=== PATIENT | male | born 1935 | race Two or more races ===

== ENCOUNTER 2018-02-20 10:40 | Inpatient (IN) | payer MEDICARE, OTHER ==
[2018-02-20] MEDS: SOD CHLORIDE 0.9% 1,000 ML IV ×2 (11:24)
[2018-02-20 11:36] LABS: ADD MAN DIFF? NO
[2018-02-20 11:38] LABS: BASOPHIL # 0.1 10^3/ul (0.0-0.1); BASOPHILS % 0.5 % (0.0-2.0); EOSINOPHILS % 0.4 % (0.0-7.0); HEMATOCRIT 43.6 % (42.0-52.0); HEMOGLOBIN 14.4 g/dl (14.0-18.0); LYMPHOCYTES % 10.3 % (15.0-51.0); MEAN CORPUSCULAR HEMOGLOBIN 31.2 pg (29.0-33.0); MEAN CORPUSCULAR VOLUME 94.4 fl (82.0-101.0); MEAN PLATELET VOLUME 9.8 fl (7.4-10.4); MONOCYTE # 1.1 10^3/ul (0.3-0.9); MONOCYTES % 11.4 % (0.0-11.0); NEUTROPHIL # 7.3 10^3/ul (1.6-7.5); NEUTROPHILS % 76.9 % (39.0-77.0); PLATELET COUNT 250 10^3/UL (140-415); RED BLOOD COUNT 4.62 10^6/ul (4.70-6.10); RED CELL DISTRIBUTION WIDTH 12.6 % (11.5-14.5)
[2018-02-20 11:38] LABS: WHITE BLOOD COUNT 9.5 10^3/ul (4.8-10.8)
[2018-02-20 11:45] LABS: ADD UMIC YES; UR ASCORBIC ACID NEGATIVE (NEGATIVE); UR BILIRUBIN (Dip) NEGATIVE (NEGATIVE); UR BLOOD (Dip) NEGATIVE (NEGATIVE); UR CLARITY CLEAR (CLEAR); UR COLOR YELLOW (YELLOW); UR GLUCOSE (Dip) NEGATIVE (NEGATIVE); UR KETONES (Dip) NEGATIVE (NEGATIVE); UR LEUKOCYTE ESTERASE (Dip) NEGATIVE Leu/ul (NEGATIVE); UR NITRITE (Dip) NEGATIVE (NEGATIVE); UR RBC 1 /HPF (0-5); UR SPECIFIC GRAVITY (Dip) 1.017 (1.003-1.030); UR TOTAL PROTEIN (Dip) 1+ mg/dl (NEGATIVE); UR UROBILINOGEN (Dip) NEGATIVE (NEGATIVE); UR WBC 0 /HPF (0-5)
[2018-02-20 12:16] LABS: ALANINE AMINOTRANSFERASE 22 IU/L (13-69); ALBUMIN/GLOBULIN RATIO 1.08; ALKALINE PHOSPHATASE 52 IU/L (42-121); ANION GAP 17 (8-16); ASPARTATE AMINO TRANSFERASE 21 IU/L (15-46); BILIRUBIN,INDIRECT 0.4 mg/dl (0-1.1); BILIRUBIN,TOTAL 0.4 mg/dl (0.2-1.3); BLOOD UREA NITROGEN 16 mg/dl (7-20); CALCIUM 9.5 mg/dl (8.4-10.2); CARBON DIOXIDE 26 mmol/L (21-31); CHLORIDE 107 mmol/L (97-110); CREATININE 1.43 mg/dl (0.61-1.24); GLUCOSE 102 mg/dl (70-220); POTASSIUM 4.2 mmol/L (3.5-5.1); SODIUM 146 mmol/L (135-144); TOTAL PROTEIN 7.7 g/dl (6.1-8.1)
[2018-02-20 12:26] LABS: B-TYPE NATRIURETIC PEPTIDE 396 PG/ML (0-450)
[2018-02-20 12:37] LABS: TROPONIN-I < 0.012 ng/ml (0.00-0.12)
[2018-02-20] MEDS: CEFTRIAXONE 1 GM/50 ML (PMX) 50 ML IVPB (13:55)
[2018-02-20] MEDS ORDERED: ACETAMINOPHEN 325 MG TAB PO (14:00)
[2018-02-20] MEDS ORDERED: ONDANSETRON 4 MG INJ IV ×2 (14:00→15:30)
[2018-02-20] MEDS: AZITHROMYCIN 250 MG TAB PO (15:18)
[2018-02-20] MEDS: ACETAMINOPHEN 325 MG TAB PO (15:18)
[2018-02-20] MEDS ORDERED: ALBUTEROL 0.083% (NEB) 2.5 MG/3 ML AMP HHN (16:00)
[2018-02-20] MEDS: DEXTROSE 5%-0.45% NACL 1,000 ML IV ×2 (17:00→20:37)
[2018-02-20] MEDS: OFLOXACIN 0.3% 5 ML OPH LEFT EYE (21:00)
[2018-02-20] MEDS: MEMANTINE 10 MG TAB PO (21:33)
[2018-02-20] MEDS: ATORVASTATIN 20 MG TAB PO (21:33)
[2018-02-20] MEDS: TAMSULOSIN (SR) 0.4 MG CAP PO (21:33)
[2018-02-20] MEDS: DICLOFENAC 0.1% 2.5 ML OPH LEFT EYE (21:33)
[2018-02-20] MEDS: PREDNISOLONE ACET 1% 5 ML OPH LEFT EYE (21:34)
[2018-02-21] MEDS: PANTOPRAZOLE (EC) 40 MG TAB PO (05:32)
[2018-02-21 06:01] LABS: ADD MAN DIFF? NO
[2018-02-21 06:10] LABS: BASOPHIL # 0.1 10^3/ul (0.0-0.1); BASOPHILS % 0.7 % (0.0-2.0); EOSINOPHILS # 0.3 10^3/ul (0.0-0.5); HEMATOCRIT 39.1 % (42.0-52.0); HEMOGLOBIN 12.8 g/dl (14.0-18.0); LYMPHOCYTES # 1.4 10^3/ul (0.8-2.9); LYMPHOCYTES % 15.5 % (15.0-51.0); MEAN CORPUSCULAR HEMOGLOBIN 30.5 pg (29.0-33.0); MEAN CORPUSCULAR HGB CONC 32.7 g/dl (32.0-37.0); MEAN CORPUSCULAR VOLUME 93.1 fl (82.0-101.0); MEAN PLATELET VOLUME 10.1 fl (7.4-10.4); MONOCYTE # 1.1 10^3/ul (0.3-0.9); NEUTROPHILS % 68.5 % (39.0-77.0); PLATELET COUNT 230 10^3/UL (140-415); RED CELL DISTRIBUTION WIDTH 12.8 % (11.5-14.5)
[2018-02-21 06:10] LABS: WHITE BLOOD COUNT 8.8 10^3/ul (4.8-10.8)
[2018-02-21 06:44] LABS: ANION GAP 16 (8-16); BLOOD UREA NITROGEN 15 mg/dl (7-20); CALCIUM 8.7 mg/dl (8.4-10.2); CARBON DIOXIDE 22 mmol/L (21-31); CHLORIDE 109 mmol/L (97-110); CREATININE 1.15 mg/dl (0.61-1.24); GLUCOSE 102 mg/dl (70-220); POTASSIUM 3.9 mmol/L (3.5-5.1); SODIUM 143 mmol/L (135-144)
[2018-02-21] MEDS: DICLOFENAC 0.1% 2.5 ML OPH LEFT EYE ×4 (08:58→20:19)
[2018-02-21] MEDS: PREDNISOLONE ACET 1% 5 ML OPH LEFT EYE ×4 (08:59→20:18)
[2018-02-21] MEDS: ASPIRIN (EC) 81 MG TAB PO (09:00)
[2018-02-21] MEDS: LOSARTAN 50 MG TAB PO (09:00)
[2018-02-21] MEDS: MEMANTINE 10 MG TAB PO ×2 (09:00→20:18)
[2018-02-21] MEDS: FINASTERIDE 5 MG TAB PO (09:00)
[2018-02-21] MEDS: NIFEdipine (XL) 30 MG TAB PO (09:01)
[2018-02-21] MEDS ORDERED: CIPROFLOXACIN 0.3% 2.5 ML OPH LEFT EYE (11:31)
[2018-02-21] MEDS: CIPROFLOXACIN 0.3% 2.5 ML OPH LEFT EYE ×3 (12:52→20:19)
[2018-02-21] MEDS: DEXTROSE 5%-0.45% NACL 1,000 ML IV (12:53)
[2018-02-21] MEDS ORDERED: CEFTRIAXONE 1 GM INJ IM (14:00)
[2018-02-21] MEDS: LEVOFLOXACIN 500MG/D5W (PMX) 100 ML IVPB (16:56)
[2018-02-21] MEDS: GUAIFENESIN/DM 5ML CUP PO ×2 (17:09→21:41)
[2018-02-21] MEDS: LEVALBUTEROL (NEB) 0.63 MG/3 ML AMP HHN (19:48)
[2018-02-21] MEDS: TAMSULOSIN (SR) 0.4 MG CAP PO (20:18)
[2018-02-21] MEDS: ATORVASTATIN 20 MG TAB PO (20:18)
[2018-02-21] MEDS: METHYLPREDNISOLONE 125 MG INJ IV (20:19)
[2018-02-22] MEDS: LEVALBUTEROL (NEB) 0.63 MG/3 ML AMP HHN ×4 (01:12→20:01)
[2018-02-22] MEDS: DEXTROSE 5%-0.45% NACL 1,000 ML IV ×2 (02:13→06:23)
[2018-02-22] MEDS: PANTOPRAZOLE (EC) 40 MG TAB PO (05:11)
[2018-02-22 06:05] LABS: ADD MAN DIFF? NO
[2018-02-22 06:10] LABS: WHITE BLOOD COUNT 4.9 10^3/ul (4.8-10.8)
[2018-02-22 06:10] LABS: ABNORMAL IP MESSAGE 1; BASOPHILS % 0.2 % (0.0-2.0); HEMATOCRIT 39.5 % (42.0-52.0); HEMOGLOBIN 13.2 g/dl (14.0-18.0); LYMPHOCYTES # 0.4 10^3/ul (0.8-2.9); LYMPHOCYTES % 7.1 % (15.0-51.0); MEAN CORPUSCULAR HEMOGLOBIN 30.8 pg (29.0-33.0); MEAN CORPUSCULAR HGB CONC 33.4 g/dl (32.0-37.0); MEAN CORPUSCULAR VOLUME 92.3 fl (82.0-101.0); MEAN PLATELET VOLUME 9.9 fl (7.4-10.4); MONOCYTE # 0.1 10^3/ul (0.3-0.9); MONOCYTES % 1.4 % (0.0-11.0); NEUTROPHIL # 4.5 10^3/ul (1.6-7.5); NEUTROPHILS % 90.7 % (39.0-77.0); PLATELET COUNT 215 10^3/UL (140-415); POSITIVE DIFF @See below; RED BLOOD COUNT 4.28 10^6/ul (4.70-6.10); RED CELL DISTRIBUTION WIDTH 12.3 % (11.5-14.5)
[2018-02-22 06:29] LABS: ANION GAP 17 (8-16); BLOOD UREA NITROGEN 18 mg/dl (7-20); CALCIUM 8.7 mg/dl (8.4-10.2); CARBON DIOXIDE 22 mmol/L (21-31); CHLORIDE 107 mmol/L (97-110); CREATININE 1.34 mg/dl (0.61-1.24); GLUCOSE 206 mg/dl (70-220); SODIUM 142 mmol/L (135-144)
[2018-02-22] MEDS: PREDNISOLONE ACET 1% 5 ML OPH LEFT EYE ×4 (08:15→22:24)
[2018-02-22] MEDS: DICLOFENAC 0.1% 2.5 ML OPH LEFT EYE ×4 (08:16→22:15)
[2018-02-22] MEDS: METHYLPREDNISOLONE 125 MG INJ IV ×2 (08:16→21:04)
[2018-02-22] MEDS: CIPROFLOXACIN 0.3% 2.5 ML OPH LEFT EYE ×4 (08:17→22:03)
[2018-02-22] MEDS: MEMANTINE 10 MG TAB PO ×2 (08:17→21:04)
[2018-02-22] MEDS: NIFEdipine (XL) 30 MG TAB PO (08:18)
[2018-02-22] MEDS: ASPIRIN (EC) 81 MG TAB PO (08:18)
[2018-02-22] MEDS: FINASTERIDE 5 MG TAB PO (08:18)
[2018-02-22] MEDS: LOSARTAN 50 MG TAB PO (08:18)
[2018-02-22] MEDS: SOD CHLORIDE 0.9% 1,000 ML IV ×2 (10:23→23:20)
[2018-02-22] MEDS: LEVOFLOXACIN 500MG/D5W (PMX) 100 ML IVPB (16:10)
[2018-02-22] MEDS: GUAIFENESIN/DM 5ML CUP PO (16:16)
[2018-02-22] MEDS: ATORVASTATIN 20 MG TAB PO (21:03)
[2018-02-22] MEDS: TAMSULOSIN (SR) 0.4 MG CAP PO (21:03)
[2018-02-23] MEDS: LEVALBUTEROL (NEB) 0.63 MG/3 ML AMP HHN ×4 (01:39→20:25)
[2018-02-23] MEDS: SOD CHLORIDE 0.9% 1,000 ML IV (02:13)
[2018-02-23 05:16] LABS: ADD MAN DIFF? NO
[2018-02-23 05:25] LABS: ABNORMAL IP MESSAGE 1; BASOPHILS % 0.1 % (0.0-2.0); HEMATOCRIT 39.8 % (42.0-52.0); HEMOGLOBIN 13.3 g/dl (14.0-18.0); LYMPHOCYTES # 0.5 10^3/ul (0.8-2.9); MEAN CORPUSCULAR HEMOGLOBIN 30.9 pg (29.0-33.0); MEAN CORPUSCULAR HGB CONC 33.4 g/dl (32.0-37.0); MEAN CORPUSCULAR VOLUME 92.3 fl (82.0-101.0); MEAN PLATELET VOLUME 9.9 fl (7.4-10.4); MONOCYTE # 0.4 10^3/ul (0.3-0.9); MONOCYTES % 2.4 % (0.0-11.0); NEUTROPHILS % 93.9 % (39.0-77.0); PLATELET COUNT 254 10^3/UL (140-415); POSITIVE DIFF @See below; RED BLOOD COUNT 4.31 10^6/ul (4.70-6.10); RED CELL DISTRIBUTION WIDTH 12.1 % (11.5-14.5)
[2018-02-23 05:25] LABS: WHITE BLOOD COUNT 18.1 10^3/ul (4.8-10.8)
[2018-02-23] MEDS: PANTOPRAZOLE (EC) 40 MG TAB PO (05:59)
[2018-02-23 06:42] LABS: ANION GAP 17 (8-16); BLOOD UREA NITROGEN 25 mg/dl (7-20); CALCIUM 9.1 mg/dl (8.4-10.2); CARBON DIOXIDE 20 mmol/L (21-31); CHLORIDE 113 mmol/L (97-110); CREATININE 1.54 mg/dl (0.61-1.24); GLUCOSE 170 mg/dl (70-220); POTASSIUM 4.2 mmol/L (3.5-5.1); SODIUM 146 mmol/L (135-144)
[2018-02-23] MEDS: CIPROFLOXACIN 0.3% 2.5 ML OPH LEFT EYE ×4 (09:13→21:08)
[2018-02-23] MEDS: PREDNISOLONE ACET 1% 5 ML OPH LEFT EYE ×4 (09:13→21:50)
[2018-02-23] MEDS: DICLOFENAC 0.1% 2.5 ML OPH LEFT EYE ×4 (09:13→21:24)
[2018-02-23] MEDS: MEMANTINE 10 MG TAB PO ×2 (09:14→21:07)
[2018-02-23] MEDS: METHYLPREDNISOLONE 125 MG INJ IV ×2 (09:14→21:24)
[2018-02-23] MEDS: ASPIRIN (EC) 81 MG TAB PO (09:15)
[2018-02-23] MEDS: LOSARTAN 50 MG TAB PO (09:15)
[2018-02-23] MEDS: NIFEdipine (XL) 30 MG TAB PO (09:15)
[2018-02-23] MEDS: FINASTERIDE 5 MG TAB PO (09:15)
[2018-02-23] MEDS: GUAIFENESIN/DM 5ML CUP PO (13:03)
[2018-02-23] MEDS: LEVOFLOXACIN 500 MG TAB PO (14:47)
[2018-02-23] MEDS: TAMSULOSIN (SR) 0.4 MG CAP PO (21:07)
[2018-02-23] MEDS: ATORVASTATIN 20 MG TAB PO (21:07)
[2018-02-23] MEDS: ACETAMINOPHEN 325 MG TAB PO (21:53)
[2018-02-24] MEDS: LEVALBUTEROL (NEB) 0.63 MG/3 ML AMP HHN ×4 (01:13→20:06)
[2018-02-24] MEDS: PANTOPRAZOLE (EC) 40 MG TAB PO (05:43)
[2018-02-24] MEDS: LEVOFLOXACIN 250 MG TAB PO (05:43)
[2018-02-24] MEDS ORDERED: LEVOFLOXACIN 500 MG TAB PO (06:00)
[2018-02-24 07:10] LABS: ADD MAN DIFF? NO
[2018-02-24 07:28] LABS: ABNORMAL IP MESSAGE 1; BASOPHILS % 0.1 % (0.0-2.0); HEMATOCRIT 40.9 % (42.0-52.0); HEMOGLOBIN 13.3 g/dl (14.0-18.0); LYMPHOCYTES # 0.6 10^3/ul (0.8-2.9); LYMPHOCYTES % 2.8 % (15.0-51.0); MEAN CORPUSCULAR HEMOGLOBIN 30.6 pg (29.0-33.0); MEAN CORPUSCULAR HGB CONC 32.5 g/dl (32.0-37.0); MEAN CORPUSCULAR VOLUME 94.2 fl (82.0-101.0); MEAN PLATELET VOLUME 10.4 fl (7.4-10.4); MONOCYTE # 0.5 10^3/ul (0.3-0.9); MONOCYTES % 2.2 % (0.0-11.0); NEUTROPHIL # 19.7 10^3/ul (1.6-7.5); PLATELET COUNT 288 10^3/UL (140-415); POSITIVE DIFF @See below; RED BLOOD COUNT 4.34 10^6/ul (4.70-6.10); RED CELL DISTRIBUTION WIDTH 12.6 % (11.5-14.5)
[2018-02-24 07:28] LABS: WHITE BLOOD COUNT 20.9 10^3/ul (4.8-10.8)
[2018-02-24 07:45] LABS: ANION GAP 19 (8-16); BLOOD UREA NITROGEN 27 mg/dl (7-20); CARBON DIOXIDE 19 mmol/L (21-31); CHLORIDE 112 mmol/L (97-110); GLUCOSE 154 mg/dl (70-220); POTASSIUM 4.5 mmol/L (3.5-5.1); SODIUM 145 mmol/L (135-144)
[2018-02-24] MEDS: FINASTERIDE 5 MG TAB PO (09:58)
[2018-02-24] MEDS: ASPIRIN (EC) 81 MG TAB PO (09:59)
[2018-02-24] MEDS: MEMANTINE 10 MG TAB PO ×2 (09:59→20:56)
[2018-02-24] MEDS: LOSARTAN 50 MG TAB PO (09:59)
[2018-02-24] MEDS: NIFEdipine (XL) 30 MG TAB PO (09:59)
[2018-02-24] MEDS: PREDNISOLONE ACET 1% 5 ML OPH LEFT EYE ×4 (10:00→20:55)
[2018-02-24] MEDS: DICLOFENAC 0.1% 2.5 ML OPH LEFT EYE ×4 (10:00→20:55)
[2018-02-24] MEDS: CIPROFLOXACIN 0.3% 2.5 ML OPH LEFT EYE ×4 (10:00→20:54)
[2018-02-24] MEDS: METHYLPREDNISOLONE 125 MG INJ IV ×2 (10:00→20:56)
[2018-02-24] MEDS: TAMSULOSIN (SR) 0.4 MG CAP PO (20:56)
[2018-02-24] MEDS: ATORVASTATIN 20 MG TAB PO (20:57)
[2018-02-25] MEDS: LEVALBUTEROL (NEB) 0.63 MG/3 ML AMP HHN ×4 (01:38→20:04)
[2018-02-25] MEDS: PANTOPRAZOLE (EC) 40 MG TAB PO (05:43)
[2018-02-25] MEDS: LEVOFLOXACIN 250 MG TAB PO (05:43)
[2018-02-25] MEDS: NIFEdipine (XL) 30 MG TAB PO (09:04)
[2018-02-25] MEDS: LOSARTAN 50 MG TAB PO (09:04)
[2018-02-25] MEDS: METHYLPREDNISOLONE 125 MG INJ IV (09:05)
[2018-02-25] MEDS: MEMANTINE 10 MG TAB PO ×2 (09:05→20:13)
[2018-02-25] MEDS: ASPIRIN (EC) 81 MG TAB PO (09:05)
[2018-02-25] MEDS: CIPROFLOXACIN 0.3% 2.5 ML OPH LEFT EYE ×4 (09:05→20:16)
[2018-02-25] MEDS: FINASTERIDE 5 MG TAB PO (09:05)
[2018-02-25] MEDS: PREDNISOLONE ACET 1% 5 ML OPH LEFT EYE ×4 (09:06→20:16)
[2018-02-25] MEDS: DICLOFENAC 0.1% 2.5 ML OPH LEFT EYE ×4 (09:06→20:15)
[2018-02-25] MEDS: CITRIC ACID/SODIUM CITRATE 15 ML CUP PO ×2 (12:11→20:13)
[2018-02-25] MEDS: ATORVASTATIN 20 MG TAB PO (20:13)
[2018-02-25] MEDS: TAMSULOSIN (SR) 0.4 MG CAP PO (20:13)
[2018-02-26] MEDS: LEVALBUTEROL (NEB) 0.63 MG/3 ML AMP HHN ×4 (01:00→19:09)
[2018-02-26 06:11] LABS: ADD MAN DIFF? NO
[2018-02-26 06:24] LABS: ABNORMAL IP MESSAGE 1; BASOPHILS % 0.2 % (0.0-2.0); HEMATOCRIT 39.4 % (42.0-52.0); HEMOGLOBIN 13.4 g/dl (14.0-18.0); MEAN CORPUSCULAR HEMOGLOBIN 30.9 pg (29.0-33.0); MEAN PLATELET VOLUME 10.2 fl (7.4-10.4); MONOCYTE # 1.6 10^3/ul (0.3-0.9); MONOCYTES % 8.5 % (0.0-11.0); NEUTROPHIL # 16.1 10^3/ul (1.6-7.5); NEUTROPHILS % 83.2 % (39.0-77.0); PLATELET COUNT 300 10^3/UL (140-415); POSITIVE DIFF @See below; RED BLOOD COUNT 4.33 10^6/ul (4.70-6.10); RED CELL DISTRIBUTION WIDTH 12.3 % (11.5-14.5)
[2018-02-26 06:24] LABS: WHITE BLOOD COUNT 19.3 10^3/ul (4.8-10.8)
[2018-02-26] MEDS: LEVOFLOXACIN 250 MG TAB PO (06:32)
[2018-02-26] MEDS: PANTOPRAZOLE (EC) 40 MG TAB PO (06:32)
[2018-02-26 06:57] LABS: ANION GAP 16 (8-16); BLOOD UREA NITROGEN 29 mg/dl (7-20); CALCIUM 8.8 mg/dl (8.4-10.2); CARBON DIOXIDE 26 mmol/L (21-31); CHLORIDE 106 mmol/L (97-110); CREATININE 1.26 mg/dl (0.61-1.24); GLUCOSE 130 mg/dl (70-220); POTASSIUM 3.5 mmol/L (3.5-5.1); SODIUM 144 mmol/L (135-144)
[2018-02-26] MEDS: DICLOFENAC 0.1% 2.5 ML OPH LEFT EYE ×3 (08:47→17:49)
[2018-02-26] MEDS: CIPROFLOXACIN 0.3% 2.5 ML OPH LEFT EYE ×3 (08:47→17:49)
[2018-02-26] MEDS: CITRIC ACID/SODIUM CITRATE 15 ML CUP PO (08:47)
[2018-02-26] MEDS: METHYLPREDNISOLONE 40 MG INJ IV (08:47)
[2018-02-26] MEDS: PREDNISOLONE ACET 1% 5 ML OPH LEFT EYE ×3 (08:47→17:49)
[2018-02-26] MEDS: LOSARTAN 50 MG TAB PO (08:48)
[2018-02-26] MEDS: MEMANTINE 10 MG TAB PO (08:48)
[2018-02-26] MEDS: ASPIRIN (EC) 81 MG TAB PO (08:48)
[2018-02-26] MEDS: NIFEdipine (XL) 30 MG TAB PO (08:48)
[2018-02-26] MEDS: FINASTERIDE 5 MG TAB PO (08:48)
== END 2018-02-26 19:10 | disposition home or self-care (01) | DRG 682 ==
LOC: MS2 19:05 → E/R 10:40 → MS2 13:58
DX: N17.9 Acute kidney failure, unspecified (principal); J18.9 Pneumonia, unspecified organism; J20.9 Acute bronchitis, unspecified; E86.0 Dehydration; I10 Essential (primary) hypertension; E78.5 Hyperlipidemia, unspecified; Z90.49 Acquired absence of other specified parts of digestive tract; R62.7 Adult failure to thrive; N40.0 Benign prostatic hyperplasia without lower urinary tract symptoms; Z87.442 Personal history of urinary calculi; F03.90 Unspecified dementia, unspecified severity, without behavioral disturbance, psychotic disturbance, mood disturbance, and anxiety; K21.9 Gastro-esophageal reflux disease without esophagitis
CPT/HCPCS: 36415; 71045; 80048; 80053; 81001; 83880; 84443; 84484; 85025; 87070; 87400; 93005; 94640; 94664; 96374; 99285-25